=== PATIENT | male | born 2000 | race Caucasian/White ===

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

== ENCOUNTER 2022-10-27 16:31 | Emergency (ER) | payer MEDICAID ==
[~2022-10-27 16:31] MED LIST changes: -SULF1TAB35 PO; +SULF1TAB38 PO
--- NOTE | 2022-10-27 16:39 | ED Psychosocial ---
General Stated Complaint: AMS/HALLUCINATING,FEET PAIN History of Present Illness Date Seen by Provider: October 27, 2022 Time Seen by Provider: 16:39 Initial Comments 22-year-old male presents because he wants to have a drug screen. Patient reports that his feet hurt because he has been running today barefooted. Patient thinks that he has been smoking more marijuana but there may have been more than just marijuana in it and wants to have it evaluated. Patient has a history of hallucinations and chart review shows that he had a social services analyst with a previous visit for hallucinations in the past. Patient denies any homicidal or suicidal ideations. He is cooperative. Allergies and Home Medications Allergies Coded Allergies: Aripiprazole (Unverified Allergy, 02/22/11) Guanfacine HCl (Unverified Allergy, 02/22/11) Ziprasidone Mesylate (Unverified Allergy, 02/22/11) ziprasidone HCl (Unverified Allergy, 02/22/11) Patient Home Medication List Home Medication List Reviewed: Yes Clonidine HCl (Clonidine HCl) 0.1 Mg Tablet, 0.1 MG PO BID, (Reported) Entered as Reported by: LEVON BARAJAS on 10/21/15 0715 Fluoxetine HCl (Prozac) 10 Mg Capsule, 10 MG PO DAILY, (Reported) Entered as Reported by: LEVON BARAJAS on 10/21/15 0715 Sulfamethoxazole/Trimethoprim (Bactrim Ds Tablet) 1 Each Tablet, 1 EACH PO BID Prescribed by: CYRIL RAMIRES on 05/23/19 3261 Review of Systems Constitutional: no symptoms reported Respiratory: no symptoms reported Cardiovascular: no symptoms reported Genitourinary: no symptoms reported Musculoskeletal: no symptoms reported Psychiatric/Neurological: See HPI Past Grkwgfg-Nzqeri-Ehdlvb Hx Immunizations Up To Date PED Vaccines UTD: Yes Seasonal Allergies Seasonal Allergies: No Past Medical History Surgeries: Yes (T and A, EAR TUBES (X7 SETS)) Adenoidectomy, Tonsillectomy Respiratory: No Cardiac: No Neurological: Yes (DX: SUBCORTICAL SEIZURES) Seizure Disorder Reproductive Disorders: No Genitourinary: No Gastrointestinal: No Musculoskeletal: No Endocrine: No HEENT: No Cancer: No Psychosocial: Yes (ON MOOD STABILIZER, intermittent explosive personality disorder ) ADD/ADHD, Personality Disorder, Depression Integumentary: No Blood Disorders: No Family Medical History No Pertinent Family Hx Physical Exam Vital Signs - First Documented 10/27/22 16:40 Temp 36.6 Pulse 106 Resp 18 B/P (MAP) 132/86 (101) Pulse Ox 98 O2 Delivery Room Air Capillary Refill : Height, Weight, BMI Height: 5'0" Weight: 105lbs. oz. 47.983436fl; 22.00 BMI Method:Actual General Appearance: WD/WN, no apparent distress HEENT: TMs normal Respiratory: lungs clear, normal breath sounds Cardiovascular: normal peripheral pulses, regular rate, rhythm Gastrointestinal: non tender, soft Behavior/Eye Contact: cooperative, good eye contact Thoughts/Hallucinations: no apparent hallucination, other (Denies homicidal or suicidal ideation) Skin: normal color, warm/dry Progress/Results/Core Measures Results/Orders Lab Results Laboratory Tests Test 10/27/22 16:44 10/27/22 16:59 Range/Units Urine Opiates Screen NEGATIVE NEGATIVE Urine Oxycodone Screen NEGATIVE NEGATIVE Urine Methadone Screen NEGATIVE NEGATIVE Urine Propoxyphene Screen NEGATIVE NEGATIVE Urine Barbiturates Screen NEGATIVE NEGATIVE Ur Tricyclic Antidepressants Screen NEGATIVE NEGATIVE Urine Phencyclidine Screen NEGATIVE NEGATIVE Urine Amphetamines Screen NEGATIVE NEGATIVE Urine Methamphetamines Screen NEGATIVE NEGATIVE Urine Benzodiazepines Screen NEGATIVE NEGATIVE Urine Cocaine Screen NEGATIVE NEGATIVE Urine Cannabinoids Screen POSITIVE H NEGATIVE White Blood Count 18.7 H 4.3-11.0 10^3/uL Red Blood Count 5.27 4.30-5.52 10^6/uL Hemoglobin 15.3 13.3-17.7 g/dL Hematocrit 44 40-54 % Mean Corpuscular Volume 83 80-99 fL Mean Corpuscular Hemoglobin 29 25-34 pg Mean Corpuscular Hemoglobin Concent 35 32-36 g/dL Red Cell Distribution Width 12.9 10.0-14.5 % Platelet Count 277 130-400 10^3/uL Mean Platelet Volume 11.3 9.0-12.2 fL Immature Granulocyte % (Auto) 0 % Neutrophils (%) (Auto) 86 H 42-75 % Lymphocytes (%) (Auto) 7 L 12-44 % Monocytes (%) (Auto) 6 0-12 % Eosinophils (%) (Auto) 0 0-10 % Basophils (%) (Auto) 0 0-10 % Neutrophils # (Auto) 16.1 H 1.8-7.8 10^3/uL Lymphocytes # (Auto) 1.3 1.0-4.0 10^3/uL Monocytes # (Auto) 1.2 H 0.0-1.0 10^3/uL Eosinophils # (Auto) 0.0 0.0-0.3 10^3/uL Basophils # (Auto) 0.1 0.0-0.1 10^3/uL Immature Granulocyte # (Auto) 0.1 0.0-0.1 10^3/uL My Orders Orders - TIFF LEBLANC DO Drug Screen Stat (Urine) (10/27/22 16:40) Cbc With Automated Diff (10/27/22 16:45) Comprehensive Metabolic Panel (10/27/22 16:45) Alcohol (10/27/22 16:45) Acetaminophen (10/27/22 16:45) Salicylate (10/27/22 16:45) Bh Status Checks/Observation O Q15M (10/27/22 16:45) Manual Differential (10/27/22 16:59) Vital Signs/I&O 10/27/22 16:40 Temp 36.6 Pulse 106 Resp 18 B/P (MAP) 132/86 (101) Pulse Ox 98 O2 Delivery Room Air Progress Progress Note : Progress Note Patient initially had requested a behavioral health consult to help establish care. Patient is diagnostics ordered reviewed and interpreted by me. He is not had a elevated white count likely just reactive due to running with no signs of fevers chills or other infectious process patient was positive for marijuana with no other positives on his drug screen. After discussing findings with him he did decided instead to have an behavioral health screen in the ER and having to wait he would just go to [facility] tomorrow and try to establish care and get a behavioral health consult. Patient does not appear in any acute distress and is not a risk to himself or others. Patient denies suicidal homicidal ideations. At this time he will be discharged as requested Departure Impression Primary Impression: Cannabis use disorder Disposition: 01 HOME, SELF-CARE Condition: Stable Departure-Patient Inst. Referrals: NO,LOCAL PHYSICIAN (PCP/Family) Primary Care Physician Patient Instructions: Marijuana Use and Addiction (DC) Add. Discharge Instructions: Please follow-up with [facility] tomorrow or behavioral health. TIFF LEBLANC DO October 27, 2022 16:39
[2022-10-27 17:05] LABS: BASOPHILS # (AUTO) 0.1 10^3/uL (0.0-0.1); BASOPHILS % (AUTO) 0 % (0-10); EOSINOPHILS % (AUTO) 0 % (0-10); HEMATOCRIT 44 % (40-54); HEMOGLOBIN 15.3 g/dL (13.3-17.7); LYMPHOCYTES # (AUTO) 1.3 10^3/uL (1.0-4.0); LYMPHOCYTES % (AUTO) 7 % (12-44); MEAN CORPUSCULAR HEMOGLOBIN 29 pg (25-34); MEAN CORPUSCULAR HGB CONC 35 g/dL (32-36); MEAN CORPUSCULAR VOLUME 83 fL (80-99); MEAN PLATELET VOLUME 11.3 fL (9.0-12.2); MONOCYTES # (AUTO) 1.2 10^3/uL (0.0-1.0); MONOCYTES % (AUTO) 6 % (0-12); NEUTROPHILS # (AUTO) 16.1 10^3/uL (1.8-7.8); NEUTROPHILS % (AUTO) 86 % (42-75); PLATELET COUNT 277 10^3/uL (130-400); WHITE BLOOD COUNT 18.7 10^3/uL (4.3-11.0)
[2022-10-27 17:09] LABS: AMPHETAMINE SCREEN, URINE NEGATIVE (NEGATIVE); BARBITURATE SCREEN URINE NEGATIVE (NEGATIVE); BENZODIAZEPINES SCREEN URINE NEGATIVE (NEGATIVE); CANNABINOID SCREEN, URINE POSITIVE (NEGATIVE); COCAINE SCREEN URINE NEGATIVE (NEGATIVE); METHADONE STAT NEGATIVE (NEGATIVE); OPIATE SCREEN URINE NEGATIVE (NEGATIVE); OXYCODONE STAT NEGATIVE (NEGATIVE); PROPOXYPHENE STAT NEGATIVE (NEGATIVE); TRICYCLIC ANTIDEPRESSANTS SCRE NEGATIVE (NEGATIVE)
[2022-10-27 17:18] LABS: BAND NEUTROPHILS 1 %; LYMPHOCYTES % (MANUAL) 8 %; MONOCYTES % (MANUAL) 8 %; NEUTROPHILS % (MANUAL) 83 %; PLATELET ESTIMATE NORMAL; RBC MORPH NORMAL
[2022-10-27 17:26] LABS: CARBON DIOXIDE 25 MMOL/L (21-32); CHLORIDE 102 MMOL/L (98-107); POTASSIUM 3.6 MMOL/L (3.6-5.0); SODIUM 142 MMOL/L (135-145)
[2022-10-27 17:27] LABS: ACETAMINOPHEN < 10 UG/ML (10-30); ALANINE AMINOTRANSFERASE 19 U/L (0-55); ALBUMIN 4.8 GM/DL (3.2-4.5); ALKALINE PHOSPHATASE 91 U/L (40-136); BILIRUBIN,TOTAL 0.7 MG/DL (0.1-1.0); BUN/CREATININE RATIO 9; CALCIUM 10.5 MG/DL (8.5-10.1); CREATININE SERUM 1.16 MG/DL (0.60-1.30); GFR ESTIMATED 92; GLUCOSE 99 MG/DL (70-105); SALICYLATE < 0.3 MG/DL (5.0-20.0); TOTAL PROTEIN 8.2 GM/DL (6.4-8.2)
[2022-10-27 17:29] VITALS: BP 132/86
== END 2022-10-27 17:29 | disposition home or self-care (01) ==
LOC: EDUNIT# 16:31 → ER FS 16:33
DX: F12.90 Cannabis use, unspecified, uncomplicated (principal); Z28.310 Unvaccinated for COVID-19
CPT/HCPCS: 36415; 80053; 80306; 85007; 85027; 99281; G0480 ×3; 80320; 80329